=== PATIENT | male | born 1995 | race Caucasian/White ===

== ENCOUNTER → 2018-07-24 | Emergency (ER) | payer OTHER ==
--- NOTE | 2018-07-24 00:59 | ED ---
Substance Abuse/Use - HPI Summary HPI Summary: A 22 y/o male presents to ED s/p substance abuse. As per triage, "Pt took approx 3-5 clondine 0.5mg over last hour captain room service. Denies nv. States he had SI secondary to recent relationship issues. Hx of depression and anxiety". According to the patient, he is not SI or HI. - History Of Current Complaint Chief Complaint: EDOverdose Stated Complaint: 941 Time Seen by Provider: 07/24/18 00:33 Hx Obtained From: Patient Ingestion History: Type/Name Of Drug - clondine, Amount Ingested - 3-5, 0.5 mg each, Approximate Time Of Ingestion - Last hour Overdose Characteristics: Oral Timing Of Abuse: Binge Use Severity Currently: None Aggravating Factor(s): Nothing Alleviating Factor(s): Nothing Associated Signs And Symptoms: Negative - Allergies/Home Medications Allergies/Adverse Reactions: Allergies Allergy/AdvReac Type Severity Reaction Status Date / Time No Known Allergies Allergy Verified 07/24/18 00:06 Home Medications: Home Medications Escitalopram Oxalate [Lexapro 10 mg] 10 mg PO DAILY 07/24/18 [History Confirmed 07/24/18] clonazePAM TAB(*) [KlonoPIN TAB(*)] 0.5 mg PO DAILY PRN 07/24/18 [History Confirmed 07/24/18] PMH/Surg Hx/FS Hx/Imm Hx Endocrine/Hematology History: Denies: Hx Diabetes Cardiovascular History: Denies: Hx Hypertension Respiratory History: Denies: Hx Asthma - Surgical History Surgery Procedure, Year, and Place: WRIST SURGERY Infectious Disease History: No Infectious Disease History: Denies: Traveled Outside the [place] in Last 30 Days - Family History Known Family History: Negative: Hypertension, Diabetes - Social History Alcohol Use: Daily Smoking Status (MU): Current Every Day Smoker Review of Systems Negative: Fever Psychological: Other - NEGATIVE: HI and SI All Other Systems Reviewed And Are Negative: Yes Physical Exam - Summary Physical Exam Summary: VITAL SIGNS: Reviewed. GENERAL: Patient is a well-developed and nourished male who is lying comfortable in the stretcher. Patient is not in any acute respiratory distress. HEAD AND FACE: No signs of trauma. No ecchymosis, hematomas or skull depressions. No sinus tenderness. EYES: PERRLA, EOMI x 2, No injected conjunctiva, no nystagmus. EARS: Hearing grossly intact. Ear canals and tympanic membranes are within normal limits. MOUTH: Oropharynx within normal limits. NECK: Supple, trachea is midline, no adenopathy, no JVD, no carotid bruit, no c- spine tenderness, neck with full ROM. CHEST: Symmetric, no tenderness at palpation LUNGS: Clear to auscultation bilaterally. No wheezing or crackles. CVS: Regular rate and rhythm, S1 and S2 present, no murmurs or gallops appreciated. ABDOMEN: Soft, non-tender. No signs of distention. No rebound no guarding, and no masses palpated. Bowel sounds are normal. EXTREMITIES: FROM in all major joints, no edema, no cyanosis or clubbing. NEURO: Alert and oriented x 3. No acute neurological deficits. Speech is normal and follows commands. SKIN: Dry and warm PSYCH: no SI or HI Triage Information Reviewed: Yes Vital Signs On Initial Exam: Initial Vitals Temp Pulse Resp BP Pulse Ox 98.3 F 66 15 138/82 96 07/24/18 00:02 07/24/18 00:02 07/24/18 00:02 07/24/18 00:02 07/24/18 00:02 Vital Signs Reviewed: Yes Diagnostics - Vital Signs Vital Signs Temp Pulse Resp BP Pulse Ox 07/24/18 00:02 98.3 F 66 15 138/82 96 - Laboratory Lab Statement: Any lab studies that have been ordered have been reviewed, and results considered in the medical decision making process. Re-Evaluation - Re-Evaluation First Eval Re-Evaluation Time: 00:49 Comment: Call [facility] for [facility] and to see patient . Second Eval Re-Evaluation Time: 01:44 Comment: Dr. Caba recommends D/C patient, however, pt's mother would like him to stay in ED until father arrives around 0500. Patient will be kept in [facility] until pickup. Diagnosis is Depression. Course/Dx - Course Course Of Treatment: A 22 y/o male presents to ED s/p substance abuse. No laboratory scans were done. In the ED course, the patient recieved no medications. Post [facility], Dr. Caba recommends D/C patient, however, pt's mother would like him to stay in ED until father arrives around 0500. Patient will be kept in [facility] until pickup. Patient will be discharged with a diagnosis of depression. Patient is to follow up with PCP in 1-2 days. Patient is agreeable with this plan. - Diagnoses Provider Diagnoses: Depression Discharge - Sign-Out/Discharge Documenting (check all that apply): Patient Departure - DISCHARGE - Discharge Plan Condition: Stable Disposition: HOME Patient Education Materials: Depression (ED) Referrals: [facility] [Outside] - If Needed (Contact to see if you can have a therapist on [place] that you could speak with when you are having increased feelings of depression) Additional Instructions: FOLLOW UP WITH PRIMARY CARE PROVIDER. RETURN TO ED FOR ANY NEW OR WORSENING SYMPTOMS. - Attestation Statements Document Initiated by Scribe: Yes Documenting Scribe: Nav Hilario Provider For Whom Scribe is Documenting (Include Credential): Fortino Pina MD Scribe Attestation: Nav Marin, scribed for Fortino Pina MD on 07/24/18 at 0432.
[2018-07-24 04:58] VITALS: BP 125/78
== END | disposition home or self-care (01) ==
LOC: ED
DX: F32.9 Major depressive disorder, single episode, unspecified (principal); F17.200 Nicotine dependence, unspecified, uncomplicated
CPT/HCPCS: 99283